=== PATIENT | male | born 1990 | race Caucasian/White ===

== ENCOUNTER 2020-02-08 15:43 | Emergency (ER) | payer MEDICAID ==
[~2020-02-08] VITALS: Ht 180.3 cm; Wt 83.3 kg
[2020-02-08 15:50] VITALS: BP 137/78
--- NOTE | 2020-02-08 17:22 | NUR ---
Patient given discharge instructions and they have confirmed that they understand the instructions. Patient ambulatory with steady gait.
== END 2020-02-08 17:23 | disposition home or self-care (01) ==
LOC: ED 16:04
DX: L97.229 Non-pressure chronic ulcer of left calf with unspecified severity (principal); Z72.9 Problem related to lifestyle, unspecified
CPT/HCPCS: 87070; 87147; 87205; 99283

== ENCOUNTER 2020-10-05 23:27 | Emergency (ER) | payer MEDICAID ==
[~2020-10-05] VITALS: Ht 180.3 cm; Wt 79.2 kg
[2020-10-05 23:36] VITALS: BP 124/80
--- NOTE | 2020-10-06 00:23 | NUR ---
PATIENT WAS ESCORTED OFF PROPERTY BY SECURITY. PATIENT NO LONGER IN LOBBY.
== END 2020-10-06 00:25 | disposition left against medical advice (07) ==
LOC: ED 23:45
DX: M79.669 Pain in unspecified lower leg (principal); Z53.21 Procedure and treatment not carried out due to patient leaving prior to being seen by health care provider